=== PATIENT | female | born 1950 | race Caucasian/White ===

== ENCOUNTER 2016-05-20 14:50 | Emergency (ER) | payer OTHER ==
[2016-05-20 16:05] VITALS: BP 151/81
[2016-05-20] MEDS ORDERED: Gelfoam 12-7 ADSORBABL SPONGE* 1 EA SPONGE ONE (17:06)
--- NOTE | 2016-05-20 17:20 | UC ---
Skin Complaint HPI - History of Current Complaint Chief Complaint: UCLaceration Time Seen by Provider: 05/20/16 17:02 Stated Complaint: FINGER LAC Hx Obtained From: Patient Onset/Duration: Sudden Onset - cut tip of L index finger with kitchen knife Skin Exposure Onset/Duration: Minutes Ago - 60min Onset Severity: Moderate Current Severity: Moderate - diff to stop bleeding Location: Hand (Left) Character: Painful Aggravating: Touch Alleviating: Nothing Associated Signs & Symptoms: Positive: Negative - Allergy/Home Medications Allergies/Adverse Reactions: Allergies Allergy/AdvReac Type Severity Reaction Status Date / Time Amoxicillin Allergy Hives Verified 01/14/14 08:27 Propoxyphene [From Darvon] Allergy Vomiting Verified 01/14/14 08:27 Review of Systems Constitutional: Negative Respiratory: Negative Cardiovascular: Negative Musculoskeletal: Negative Neurological: Negative Psychological: Negative All Other Systems Reviewed And Are Negative: Yes PMH/Surg Hx/FS Hx/Imm Hx Previously Healthy: Yes Endocrine History Of: Denies: Diabetes, Thyroid Disease Cardiovascular History Of: Denies: Cardiac Disorders, Hypertension, Pacemaker/ICD Respiratory History Of: Denies: COPD, Asthma GI/ History Of: Denies: Ulcer - Surgical History Surgical History: Yes Surgery Procedure, Year, and Place: tonsillectomy - Family History Known Family History: Positive: None - Social History Occupation: Unemployed Lives: With Family Alcohol Use: Daily Alcohol Amount: drink a day Substance Use Type: None Smoking Status (MU): Never Smoked Tobacco - Immunization History Most Recent Tetanus Shot: 2 years ago Physical Exam Triage Information Reviewed: Yes Appearance: Well-Appearing, No Pain Distress, Well-Nourished Vital Signs: Initial Vital Signs Temp 97.9 F 05/20/16 16:00 Pulse 75 05/20/16 16:00 Resp 18 05/20/16 16:00 BP 151/81 05/20/16 16:00 Pulse Ox 99 05/20/16 16:00 Respiratory Exam: Normal Cardiovascular Exam: Normal Neurological Exam: Normal Psychological Exam: Normal Skin: Positive: Other - small bleeding avulsion to distal L index finger Laceration Repair - Laceration Repair 1 : No Repair Necessary Laceration Size After Repair: Length (cm) - .75, Width (mm) - 5mm, Depth (mm) - 3mm Modified For Repair: No Cleansing Completed Via Routine Prep: Yes Course/Dx - Course Course Of Treatment: gelfoam dressing with tube gauze applied for hemostasis - Differential Diagnoses - Skin Complaint Differential Diagnoses: Other - abrasion, laceration, avulsion - Diagnoses Provider Diagnoses: avulsion injury L index Discharge - Discharge Plan Condition: Good Disposition: HOME Patient Education Materials: Skin Avulsion (ED) Referrals: Maciel Guerrero MD [Primary Care Provider] - 3 Days (if no better) Additional Instructions: elevate Left hand and keep it clean and dry keep current dressing on for 48h, then gently remove tube gauze and keep gelfoam intact apply bandaid until gelfoam wears off return here if problems worsen at any time
== END 2016-05-20 17:31 | disposition home or self-care (01) ==
LOC: UCEAST 14:50
DX: S61.211A Laceration without foreign body of left index finger without damage to nail, initial encounter (principal); W26.0XXA Contact with knife, initial encounter; Y92.9 Unspecified place or not applicable; Z88.0 Allergy status to penicillin; Z88.5 Allergy status to narcotic agent
CPT/HCPCS: 12031; 99212; A9270-GY; G0463

== ENCOUNTER 2018-08-28 08:17 | Inpatient (IN) | payer OTHER, MEDICARE ==
[~2018-08-28 08:17] MED LIST: Buffered Lidocaine 1% SYRIN* 1 ML/SYRINGE INTRADERM ONE; ERTApenem(*) 1 GM in NS 0.9% 50 ML* 50 ML IVPB SCH; Famotidine IV* 10 MG/ML 2 ML (20 mg) IV ONE; Famotidine IV* 10 MG/ML 2 ML (20 mg) ONE; Heparin VIAL(*) 5000 UNITS/ML VIAL (FIVE THOUSAND) ONE; Lactated Ringers 1000 ML Bag* 1,000 ML IV SCH
--- OUTSIDE RECORDS SUMMARY | 2018-08-28 08:21 | XMS REPORT | Continuity of Care Document ---
:1950 External Reference #:[id number] Author Name Soumya Flores Care Team Providers Name Role Phone Margarita Pereira M.D. Primary Care Physician Unavailable Payers Date Identification Numbers Payment Provider Subscriber Policy Number: [id number] [employer] Dianelys Breen Group Number: [id number] [address] PayID: [id number] [place] [address] Problems Active Problems Provider Date Nondisplaced fracture of glenoid cavity of Michele Kim M.D. Onset: 2014 scapula, right shoulder, subsequent encounter for fracture with routine healing Closed fracture of glenoid cavity AND/OR neck of Michele Kim M.D. Onset: scapula Family History Date Family Member(s) Observation Comments General Heart Disease General cancer Father Skin Cancer Father due to Cancer () Mother due to Natural Causes () Siblings 1 Social History Type Date Description Comments Sex Unknown Marital Status Single Lives With Alone Occupation works at [employer] Tobacco Use Start: Unknown Never Smoked Cigarettes Smoking Status Reviewed: 08/13/18 Never Smoked Cigarettes ETOH Use Currently consumes 5-6 drinks/week alcohol Tobacco Use Start: Unknown Patient has never smoked Recreational Drug Use Never Used Drugs Exercise Type/Frequency Exercises regularly Allergies, Adverse Reactions, Alerts Active Allergies Reaction Severity Comments Date Darvon 11/16/2014 Amoxicillin rash 11/16/2014 Latex rash/itch 11/16/2014 Medications Active Medications SIG Qnty Indications Ordering Provider Date Multivitamin Adult 1 by mouth every Unknown Tablets day Vitamin C 1 by mouth every Unknown 500mg Capsules day as needed Potassium & Magnesium 3 times per week Unknown Aspartat 250-250mg Capsules History Medications No Active Medications Unknown 01/28/2015 - 05/24/2018 Hydrocodone Unknown - 01/24/2015 Potassium Chloride Fadumo ER 1 by mouth every day Unknown - 03/2018 10Meq Tablets ER Calcium 1500 mg by mouth Unknown - 07/24/2018 500mg Chewtabs daily Vital Signs Date Vital Result Comment 08/13/2018 10:28am Height 65.75 inches 5'5.75" Weight 140.00 lb Heart Rate 66 /min BP Systolic Sitting 140 mmHg BP Diastolic Sitting 88 mmHg Respiratory Rate 18 /min Body Temperature 97.8 F BMI (Body Mass Index) 22.8 kg/m2 07/24/2018 9:39am Height 63.5 inches 5'3.50" Weight 141.00 lb Heart Rate 70 /min BP Systolic Sitting 143 mmHg BP Diastolic Sitting 89 mmHg O2 % BldC Oximetry 98 % BMI (Body Mass Index) 24.6 kg/m2 05/24/2018 3:22pm Height 63.5 inches 5'3.50" Weight 141.25 lb Heart Rate 68 /min BP Systolic 164 mmHg BP Diastolic 92 mmHg Body Temperature 98.4 F O2 % BldC Oximetry 97 % BMI (Body Mass Index) 24.6 kg/m2 01/28/2015 9:15am Height 66 inches 5'6" Weight 132.00 lb Pain Level 3 BMI (Body Mass Index) 21.3 kg/m2 12/17/2014 8:37am Height 66 inches 5'6" Weight 132.00 lb Pain Level 5 BMI (Body Mass Index) 21.3 kg/m2 11/16/2014 9:57am Height 66 inches 5'6" Weight 132.00 lb Heart Rate 60 /min BP Systolic 161 mmHg BP Diastolic 92 mmHg BMI (Body Mass Index) 21.3 kg/m2 Results Test Date Facility Test Result H/L Range Note CBC Auto Diff 08/08/2018 [facility] White Blood 5.4 10^3/uL N 3.5-10.[address] [place] [address] [phone] Red Blood Count 4.58 10^6/uL N 3.70-4.87 Hemoglobin 13.4 g/dL N 12.0-16.0 Hematocrit 40 % N 35-47 Mean Corpuscular Volume 88 fL N 80-97 Mean Corpuscular Hemoglobin 29 pg N 27-31 Mean Corpuscular HGB Conc 33 g/dL N 31-36 Red Cell Distribution Width 12 % N 10.5-15 Platelet Count 218 10^3/uL N 150-450 Mean Platelet Volume 7.6 fL N 7.4-10.4 Abs Neutrophils 3.5 10^3/uL N 1.5-7.7 Abs Lymphocytes 1.6 10^3/uL N 1.0-4.8 Abs Monocytes 0.2 10^3/uL N 0-0.8 Abs Eosinophils 0.0 10^3/uL N 0-0.6 Abs Basophils 0.0 10^3/uL N 0-0.2 Abs Nucleated RBC 0.0 10^3/uL Granulocyte % 64.8 % Lymphocyte % 29.9 % Monocyte % 4.2 % Eosinophil % 0.5 % Basophil % 0.6 % Nucleated Red Blood Cells % 0.3 Comp Metabolic Panel 08/08/2018 [facility] Sodium 139 mmol/L N 135-[address] [place] [address] [phone] Potassium 3.7 mmol/L N 3.5-5.0 Chloride 106 mmol/L N 101-111 Co2 Carbon Dioxide 26 mmol/L N 22-32 Anion Gap 7 mmol/L N 2-11 Glucose 127 mg/dL High 70-100 Blood Urea Nitrogen 15 mg/dL N 6-24 Creatinine 0.83 mg/dL N 0.51-0.95 BUN/Creatinine Ratio 18.1 N 8-20 Calcium 9.2 mg/dL N 8.6-10.3 Total Protein 6.4 g/dL N 6.4-8.9 Albumin 4.2 g/dL N 3.2-5.2 Globulin 2.2 g/dL N 2-4 Albumin/Globulin Ratio 1.9 N 1-3 Total Bilirubin 0.50 mg/dL N 0.2-1.0 Alkaline Phosphatase 59 U/L N 34-104 Alt 15 U/L N 7-52 Ast 19 U/L N 13-39 Egfr Non- 68.6 >60 Egfr 83.0 >60 1 Iron & Iron Binding 08/08/2018 [facility] Iron 70 g/dL N 50- [address] [place] [address] [phone] Unsaturated Iron Binding < 317 g/dL Total Iron Binding Capacity 332 g/dL N 250-450 Transferrin 237 mg/dL N 203-362 % Iron Saturation 21 % N 15-55 Laboratory test 08/08/2018 [facility] Carcinoembryonic 1.4 ng/ mL N 0.1-5.0 [address] [place] [address] [phone] Ferritin 64.0 ng/mL N 11-307 Laboratory test 08/02/2018 [facility] Surgical SEE RESULT 3 , [address] [place] [address] [phone] CBC Auto Diff 07/24/2018 [facility] White Blood 4.2 10^3/uL N 3.5-[address] Count 0.8 [place] [address] [phone] Red Blood Count 4.64 10^6/uL N 3.70-4.87 Hemoglobin 13.5 g/dL N 12.0-16.0 Hematocrit 41 % N 35-47 Mean Corpuscular Volume 89 fL N 80-97 Mean Corpuscular Hemoglobin 29 pg N 27-31 Mean Corpuscular HGB Conc 33 g/dL N 31-36 Red Cell Distribution Width 13 % N 10.5-15 Platelet Count 205 10^3/uL N 150-450 Mean Platelet Volume 7.9 fL N 7.4-10.4 Abs Neutrophils 2.8 10^3/uL N 1.5-7.7 Abs Lymphocytes 1.1 10^3/uL N 1.0-4.8 Abs Monocytes 0.2 10^3/uL N 0-0.8 Abs Eosinophils 0 10^3/uL N 0-0.6 Abs Basophils 0 10^3/uL N 0-0.2 Abs Nucleated RBC 0 10^3/uL Granulocyte % 66.6 % Lymphocyte % 26.5 % Monocyte % 5.8 % Eosinophil % 0.5 % Basophil % 0.6 % Nucleated Red Blood Cells % 0.1 1 Because ethnic data is not always readily available, this report includes an eGFR for both -Americans and non- Americans. The National Kidney Disease Education Program (NKDEP) does not endorse the use of the MDRD equation for patients that are not between the ages of 18 and 70, are , have extremes of body size, muscle mass, or nutritional status, or are non- or non-. According to the National Kidney Foundation, irrespective of diagnosis, the stage of the disease is based on the level of kidney function: Stage Description GFR(mL/min/1.73 m(2)) 1 Kidney damage with normal or decreased GFR 90 2 Kidney damage with mild decrease in GFR 60-89 3 Moderate decrease in GFR 30-59 4 Severe decrease in GFR 15-29 5 Kidney failure <15 (or dialysis) 2 Nonsmokers: < 2.9 ng/mL Some smokers may have elevated CEA, usually <5.0 ng/mL. Serum markers are not specific for malignancy, and values may vary by method. The testing method is an immunoenzymatic assay tractor trailer mechanic by [employer] performed on [employer] DXI 600. Do not interpret serum CEA levels as absolute evidence of the presence or the absence of malignant disease. Use serum CEA in conjunction with information from the clinical evaluation of the patient and other diagnostic procedures. 3 [id number] 4 SEE RESULT BELOW Name: SWAPNADIANELYS : [address]: Jackson Good DO Acct: [id number] Unit: [id number] AGE: 68 Location: [facility] Re08/02/18 SEX: F Status: DEP REF SPEC: [id number] RAFAEL: 08/02/18-[address]: Jackson Good DO REQ: [id number] RECD: 08/02/18-5182 STATUS: SAMIA JUNIOR DR: Margarita Pereira MD _ ORDERED: LEVEL 4/2, IMMUNO-FIRST, IMMUNO-ADDL/4 COMMENTS: [id number] ADDENDUM Addendum: Following immunochemical stains were performed with appropriate controls on part 2. PMS 2 intact MSH 6 intact MSH 2 intact MLH-1 intact BRAF negative No evidence of mismatch repair proteins defect is identified. Addendum Signed (signature on file) Arvind Wesley MD 1514 FINAL DIAGNOSIS 1. Colon, transverse, biopsy: -- Scant bacterial debris and mucin only. -- No patient tissue identified. 2. Colon, sigmoid, biopsy: -- Invasive, moderately differentiated colonic adenocarcinoma arising in association with tubulovillous adenoma. -- Extensive invasion cannot be assessed on this limited biopsy. CONTINUED ON NEXT PAGE DEPARTMENT OF PATHOLOGY, [address] [place] [address] Arvind Wesley M.D. Director DAVID # [id number] RUN DATE: 08/06/18 [facility] LAB LIVE PAGE 2 Patient: DIANELYS BREEN [id number] (Continued) FINAL DIAGNOSIS (Continued) Comment: Additional studies including mismatch repair protein and BRAF immunochemical stains are pending on part 2 and will be reported in an addendum. Dr. Baker has reviewed this case and concurs. CLINICAL HISTORY Rectal bleeding POST-OPERATIVE DIAGNOSIS Colonoscopy: to terminal ileum; good prep; mass at 12; 3-4 cm; spotting proximal and distal; third over two folds; friable; orise; biopsy; cold snare transverse polyp (1) GROSS DESCRIPTION 1. The specimen is received in formalin labeled, Transverse Polyp, and consists of a 0.2 x 0.1 by less than 0.1 cm aggregate of tong irregular possible soft tissue fragments. Entirely submitted, one cassette. 2. The specimen is received in formalin labeled, Sigmoid Mass at 17 cm Biopsy, and consists of a 0.9 x 0.8 x 0.2 cm aggregate of erythematous tong-pink irregular soft tissue fragments which is submitted entirely in one cassette. Signed by and Reported on: Arvind Wesley MD 1426 END OF REPORT DEPARTMENT OF PATHOLOGY, [address] [place] [address] Arvind Wesley M.D. Director [facility] # [id number] Procedures Date Code Description Status 08/02/2018 01997312 Colonoscopy Completed 06/19/2018 05318 Destruction Of Benign Lesions Any Method 1-14 lesions Completed Encounters Type Date Location Provider Dx Diagnosis Office Visit 07/24/2018 [facility] Internal Margarita Pereira MD K62.5 Hemorrhage of anus 9:40a Medicine and rectum R03.0 Elevated blood-pressure reading, w/o diagnosis of htn Office Visit 06/19/2018 10:20a [facility] Dermatology Dorys Luo, L82.1 Other seborrheic MD keratosis L81.4 Other melanin hyperpigmentation D18.01 Hemangioma of skin and subcutaneous tissue L72.0 Epidermal cyst L85.3 Xerosis cutis Z80.8 Family history of malignant neoplasm of organs or systems L82.0 Inflamed seborrheic keratosis L53.8 Other specified erythematous conditions Office Visit 05/24/2018 3:20p [facility] Internal Margarita Pereira MD R25.2 Cramp and Medicine - spasm [place] R03.0 Elevated blood-pressure reading, w/o diagnosis of htn D48.5 Neoplasm of uncertain behavior of skin H91.93 Unspecified hearing loss, bilateral L98.9 Disorder of the skin and subcutaneous tissue, unspecified Office Visit 01/28/2015 9:15a Orthopedic Michele Kim, S42.144D Nondisp fx of Services Of M.DSkylar glenoid cav of C.M.Amadison mack, 7thD Office Visit 12/17/2014 8:30a Janet Kim S42.144D Nondisp fx of Services Of M.D. glenoid cav of C.M.Amadison mack, 7thD Office Visit 11/16/2014 9:30a Orthopedic Michele Kim, 811.03 FX Scapula Services Of M.DSkylar Glenoid Cavity C.M.A. & Neck Closed Plan of Treatment Future Appointment(s):08/28/2018 10:00 am - NIKKI Syed at [facility]08/28/2018 10:00 am - Nithin Smart MD, FACS at [facility]11/26/2018 10:00 am - Margarita Pereira MD at [facility] Internal [place]04/21/2019 - Nithin Smart MD, FACSC18.7 Malignant neoplasm of sigmoid colonComments:Patient will require a bowel prep including oral antibiotics. I discussed this with her and she understands the plan. Expectations of a 4-7 day admission postprocedure.Follow up:operating room
--- OUTSIDE RECORDS SUMMARY | 2018-08-28 08:21 | XMS REPORT | Continuity of Care Document ---
:1950 External Reference #:[id number] Author Name Mellisa Fitch Care Team Providers Name Role Phone Margarita Pereira M.D. Primary Care Physician Unavailable Payers Date Identification Numbers Payment Provider Subscriber Policy Number: [id number] [employer] Rita Breen Group Number: [id number] [address] PayID: [id number] [place] [address] Problems Active Problems Provider Date Nondisplaced fracture [...] Single Lives With Alone Occupation works at [employer] Tobacco Use Start: Unknown Never Smoked Cigarettes [...] Medications SIG Qnty Indications Ordering Provider Date Flagyl 1 tab by mouth at 3tabs Maricruz Breen, 08/20/2018 500mg Tablets 1:00 at night & MD 7:00 at night the day before surgery and at 7:00 in the morning the day of surgery Neomycin Sulfate 2 tabs by mouth 6tabs Maricruz Breen, 08/20/2018 500mg at 1:00 at night Tablets & 7:00 at night the day before surgery, and at 7:00 in the morning the day of surgery Peg 3350/Electrolytes as directed the 4000ml Maricruz Breen, 08/20/2018 day before 240gm Solution Rec surgery Multivitamin Adult 1 by mouth every Unknown day Tablets Vitamin C 1 by mouth every Unknown 500mg day as needed Capsules Potassium & Magnesium 3 times per week [...] H/L Range Note CBC Auto Diff 08/08/2018 [facility] White Blood 5.4 10^3/uL N 3.5-10.[address] [place] [address] [phone] Red Blood Count 4.58 10^6/uL N 3.70-4.87 [...] Cells % 0.3 Comp Metabolic Panel 08/08/2018 [facility] Sodium 139 mmol/L N 135-[address] [place] [address] [phone] Potassium 3.7 mmol/L N 3.5-5.0 Chloride 106 [...] >60 1 Iron & Iron Binding 08/08/2018 [facility] Iron 70 g/dL N 50- [address] [place] [address] [phone] Unsaturated Iron Binding < 317 g/dL Total Iron Binding Capacity 332 g/dL N 250-450 Transferrin 237 mg/dL N 203-362 % Iron Saturation 21 % N 15-55 Laboratory test 08/08/2018 [facility] Carcinoembryonic 1.4 ng/ mL N 0.1-5.0 [address] [place] [address] [phone] Ferritin 64.0 ng/mL N 11-307 Laboratory test 08/02/2018 [facility] Surgical SEE RESULT 3 , [address] [place] [address] [phone] CBC Auto Diff 07/24/2018 [facility] White Blood 4.2 10^3/uL N 3.5-[address] Count 0[address]8 [place] [address] [phone] Red Blood Count 4.64 10^6/uL N 3.70-4.87 [...] The testing method is an immunoenzymatic assay accessories repairer by [employer] performed on [employer] DXI 600. Do not interpret serum CEA levels as absolute evidence of the presence or the absence of malignant disease. Use serum CEA in conjunction with information from the clinical evaluation of the patient and other diagnostic procedures. 3 [id number] 4 SEE RESULT BELOW Name: RITA BREEN : [address]: Jackson Good DO Acct: [id number] Unit: [id number] AGE: 68 Location: [facility] Re08/02/18 SEX: F Status: DEP REF SPEC: [id number] RAFAEL: 08/02/18-1027 [facility] DR: Jackosn Good DO REQ: [id number] RECD: 08/02/18914 STATUS: SAMAI JUNIOR DR: Margarita Pereira MD _ ORDERED: LEVEL 4/2, IMMUNO-FIRST, IMMUNO-ADDL/4 COMMENTS: [id number] ADDENDUM Addendum: Following immunochemical stains were performed [...] CONTINUED ON NEXT PAGE DEPARTMENT OF PATHOLOGY, [address] [place] [address] Arvind Wesley M.D. Director DAVID # [id number] RUN DATE: 08/06/18 [facility] LAB LIVE PAGE 2 Patient: RITA BREEN [id number] (Continued) FINAL DIAGNOSIS (Continued) Comment: Additional studies [...] 1426 END OF REPORT DEPARTMENT OF PATHOLOGY, [address] [place] [address] Arvind Wesley M.D. Director [facility] # [id number] Procedures Date Code Description Status 08/02/2018 [id number] Colonoscopy Completed 06/19/2018 23923 Destruction Of Benign Lesions Any Method 1-14 lesions Completed Encounters Type Date Location Provider Dx Diagnosis Office Visit 08/13/2018 [facility] Nithin Smart, C18.7 Malignant neoplasm 10:30a Of Debbie GUPTA, FACS of sigmoid colon Office Visit 07/24/2018 [facility] Internal Margarita Pereira MD K62.5 Hemorrhage of anus 9:40a Medicine and rectum R03.0 Elevated blood-pressure reading, w/o diagnosis of htn Office Visit 06/19/2018 10:20a [facility] Dermatology Dorys Luo, L82.1 Other seborrheic MD keratosis L81.4 Other melanin hyperpigmentation D18.01 Hemangioma of skin and subcutaneous tissue L72.0 Epidermal cyst L85.3 Xerosis cutis Z80.8 Family history of malignant neoplasm of organs or systems L82.0 Inflamed seborrheic keratosis L53.8 Other specified erythematous conditions Office Visit 05/24/2018 3:20p [facility] Internal Margarita Pereira MD R25.2 Cramp and Medicine - spasm [place] R03.0 Elevated blood-pressure reading, w/o diagnosis of htn D48.5 Neoplasm of uncertain behavior of skin H91.93 Unspecified hearing loss, bilateral L98.9 Disorder of the skin and subcutaneous tissue, unspecified Office Visit 01/28/2015 9:15a Orthopedic Michele Kim, S42.144D Nondisp fx of Services Of M.D. glenoid cav of C.M.A. madison paz, 7thD Office Visit 12/17/2014 8:30a Orthopedic Michele Julio, S42.144D Nondisp fx of Services Of M.D. glenoid cav of C.M.A. madison paz, 7thD Office Visit 11/16/2014 9:30a Orthopedic Michele Kim, 811.03 FX Scapula Services Of M.D. Glenoid Cavity C.M.A. & Neck Closed Plan of Treatment Future Appointment(s):08/28/2018 10:00 am - NIKKI Syed at [facility]08/28/2018 10:00 am - Nithin Smart MD, FACS at [facility]11/26/2018 10:00 am - Margarita Pereira MD at [facility] Internal Ipxkkvba88/21/2019 - Nithin Smart MD, FACSC18.7 Malignant neoplasm of sigmoid colonComments:Patient will require a bowel prep including oral antibiotics. I discussed this with her and she understands the plan. Expectations of a 4-7 day admission postprocedure.Referral:Nithin Smart MD, Surgery,GeneralFollow up:operating room
--- OUTSIDE RECORDS SUMMARY | 2018-08-28 08:21 | XMS REPORT | Continuity of Care Document ---
:1950 External Reference #:[id number] Author Name Tawnya Baxter PA-C Address [address] [place] [address] [place] [address] Care Team Providers Name Role Phone Margarita Pereira M.D. Care Team Information Core Inserter Unavailable Margarita Pereira M.D. Primary Care Physician Unavailable Payers Date Identification Numbers Payment Provider Subscriber Policy Number: [id number] Liang Breen PayID: [id number] [address] [place] [address] Advance Directives Description No Information Available Problems Active Problems Provider Date Hemorrhage of rectum and anus Tawnya Baxter PA-C Onset: 07/29/2018 Family History Date Family Member(s) Observation Comments Aunt Colon Cancer Social History Type Date Description Comments Sex Unknown Tobacco Use Start: Unknown Patient has never smoked Smoking Status Reviewed: 07/29/18 Patient has never smoked Allergies, Adverse Reactions, Alerts Active Allergies Reaction Severity Comments Date Amoxicillin 07/24/2018 Propoxyphene 07/24/2018 Latex 07/24/2018 Medications Active Medications SIG Qnty Indications Ordering Provider Date Colyte-Flavor Packs As directed 4000ml K62.5 Tawnya Potter 07/29/2018 240gm VALENTIN Baxter Solution Rec Teuerqi-Kfcefkcmc-Ysrk Unknown Potassium Unknown History Medications Vitamin C 1 by mouth every day Unknown - 07/28/2018 500mg Tablets Immunizations Description No Information Available Vital Signs Date Vital Result Comment 07/29/2018 8:55am Height 64.5 inches 5'4.50" Weight 138.00 lb BP Systolic 134 mmHg BP Diastolic 92 mmHg Heart Rate 73 /min BMI (Body Mass Index) 23.3 kg/m2 Results Test Date Facility Test Result H/L Range Note CBC W/Auto 07/24/2018 [facility] White Blood <pending> Differential(!) Count Ser Auto CNT RBC Red Blood Count <pending> Hemoglobin Blood <pending> Hematocrit <pending> MCV (Corpuscular Volume) <pending> MCH (Corpuscular Hemoglobin) <pending> MCHC (Corpuscular Hemog Conc) <pending> RDW <pending> Platelet Count Blood Auto CNT <pending> MPV <pending> Lymph% <pending> [place]% <pending> Neutrophil % <pending> Absolute Lymphocytes <pending> Absolute Monocytes <pending> Absolute Neutrophils <pending> Procedures Description No Information Available Encounters Type Date Location Provider Dx Diagnosis Office Visit 05/09/2011 [facility] Pizarro 789.00 Pain Abdominal 2:15p [facility] MD Unspec Site Plan of Treatment Future Appointment(s):08/02/2018 9:30 am - Jackson Good DO at [facility]07/29/2018 - NIKKI Briones-CK62.5 Hemorrhage of anus and rectumNew Medication:Colyte-Flavor Packs 240 gm - As directedComments:RISKS AND BENEFITS OF THE PROCEDURE WERE DISCUSSED WITH PATIENT.
[2018-08-28] MEDS ORDERED: Propofol* 10 MG/ML 20 ML BTL ONE (08:45)
[2018-08-28] MEDS ORDERED: Midazolam* 1 MG/ML 5 ML VIAL (5 MG) ONE (08:45)
[2018-08-28] MEDS ORDERED: fentaNYL* 50 MCG/ML 2 ML VIAL (100 MCG VIAL) ONE ×3 (08:45→12:56)
[2018-08-28] MEDS ORDERED: Phenylephrine 10 MG/ML VIAL* 1 ML VIAL ONE (08:45)
[2018-08-28] MEDS ORDERED: Lidocaine 2% PF * 5 ML VIAL ONE (08:45)
[2018-08-28] MEDS ORDERED: Dexamethasone IV* 4 MG/ML 1 ML (4 MG) ONE (08:45)
[2018-08-28] MEDS ORDERED: Ondansetron INJ* 2 MG/ML VIAL ONE (08:45)
[2018-08-28] MEDS ORDERED: Rocuronium* 10 MG/ML VIAL ONE (08:45)
[2018-08-28] MEDS ORDERED: KETAMINE HCL* 50 MG/ML 10 ML VIAL ONE (08:46)
[2018-08-28] MEDS ORDERED: Scopolamine 1.5 mg* PATCH ONE (10:08)
[2018-08-28] MEDS ORDERED: Bupivacaine 0.25% W/EPI* 10 ML SDV ONE (10:14)
[2018-08-28] MEDS ORDERED: DiMENhydriNATE IV* 50 MG/ML VIAL ONE (12:14)
[2018-08-28] MEDS ORDERED: Naloxone* 0.4 MG/ML 1 ML VIAL IV PRN (12:19)
[2018-08-28] MEDS ORDERED: Ondansetron INJ* 2 MG/ML VIAL IV PRN (12:19)
[2018-08-28] MEDS ORDERED: PROCHLORPERAZINE INJ 5 MG/ML 2 ML VIAL IV PRN (12:19)
[2018-08-28] MEDS ORDERED: Bupivacaine 0.25% EPI 200,000* 30 ML SDV ONE (13:26)
[2018-08-28] MEDS ORDERED: HYDROmorphone INJ1* 1 MG/ML SYRINGE ONE (13:54)
[2018-08-28] MEDS ORDERED: Ketorolac INJ* 30 MG/ML 1 ML VIAL ONE (13:54)
--- NOTE | 2018-08-28 14:55 | OP ---
Operative Report - Blank - Operative Report Date of Operation: 08/28/18 Note: Brief Operative Note Preop Dx: colon cancer Postop Dx: same Procedure: Laparoscopic-assisted sigmoid colectomy Anesthesia: GET Surgeon: Berry Laboratory Clerk: NIKKI Bryson Fluids: 2550 ml RL EBL: 100 ml Specimen: sigmoid colon Drains: none Findings: dictated
[2018-08-28] MEDS ORDERED: Lactated Ringers 1000 ML Bag* 1,000 ML IV ONE (15:01)
[2018-08-28] MEDS ORDERED: Acetaminophen TAB* 325 MG PO PRN (15:03)
[2018-08-28] MEDS ORDERED: HYDROcodone/ACETAMIN 5-325 MG* 1 TAB PO PRN ×2 (15:04)
[2018-08-28] MEDS ORDERED: HYDROmorphone INJ1* 1 MG/ML SYRINGE IV SLOW PU PRN ×2 (15:05)
[2018-08-28] MEDS ORDERED: fentaNYL* 50 MCG/ML 5 ML VIAL (250 MCG VIAL) ONE (15:25)
[2018-08-28] MEDS: fentaNYL* 50 MCG/ML 2 ML VIAL (100 MCG VIAL) IV PRN ×5 (15:26→16:56)
[2018-08-28] MEDS ORDERED: Acetaminophen IV 1GM/100ML * 100 ML ONE (16:48)
[2018-08-28] MEDS ORDERED: Enalaprilat IV* 1.25 MG/ML 2 ML VIAL (2.5 MG) ONE (16:48)
[2018-08-28] MEDS ORDERED: Naloxone* 0.4 MG/ML 1 ML VIAL IV PUSH PRN (16:49)
[2018-08-28] MEDS ORDERED: HYDROmorphone PCA* 20 MG/20 ML PCA.SYRING PCA SCH (17:00)
[2018-08-28 17:33] LABS: Hematocrit 38 % (35-47); Hemoglobin 12.8 g/dL (12.0-16.0); Mean Corpuscular HGB Conc 34 g/dL (31-36); Mean Corpuscular Hemoglobin 30 pg (27-31); Mean Corpuscular Volume 89 fL (80-97); Mean Platelet Volume 7.1 fL (7.4-10.4); Platelet Count 162 10^3/uL (150-450); Red Blood Count 4.28 10^6 /uL (3.70-4.87); Red Cell Distribution Width 13 % (10.5-15); White Blood Count 8.1 10^3/uL (3.5-10.8)
[2018-08-28] MEDS ORDERED: HYDROmorphone PCA* 20 MG/20 ML PCA.SYRING ONE (17:44)
[2018-08-28 17:58] LABS: INR 1.05 (0.82-1.09)
[2018-08-28] MEDS: Lactated Ringers 1000 ML Bag* 1,000 ML IV SCH (22:00)
--- NOTE | 2018-08-29 03:19 | OP ---
CC: Primary Care Doctor; Dr. Jackson Good * DATE OF OPERATION: 08/28/18 - ROOM #335 DATE OF : 52 SURGEON: Nithin Smart MD UPHOLSTERY HANDLER: NIKKI Willingham ANESTHESIOLOGIST: Dr. Aguilera. ANESTHESIA: General anesthesia. PRE-OP DIAGNOSIS: Colon cancer. POST-OP DIAGNOSIS: Colon cancer. OPERATIVE PROCEDURE: Laparoscopic-assisted sigmoid colectomy. FLUIDS: 100 cc of crystalloid fluid given. IV FLUIDS: 2500 cc of lactated Ringer's. URINE OUTPUT: 400 cc of urine output. SPECIMEN: Sigmoid colon along with doughnuts from end-to-end anastomosis. DESCRIPTION OF PROCEDURE: The patient was identified in the preoperative area, consent signed. She was marked, taken to the operating room, placed on the operating table in supine position. Preoperative antibiotics given. Sequential devices were placed on bilateral lower extremities. General anesthesia was induced. A Franks catheter inserted. On exam of the rectum, there was some loose stool still exiting, mostly thin. We then inserted a large Franks catheter and inflated the balloon and did a prep from below of Betadine irrigation. I could not palpate any lesion on examination. Then, the patient' s abdomen was prepped and draped in a standard surgical fashion and time-out performed. A supraumbilical incision was made. This was deepened down through the anterior fascia which was elevated and incised and posterior fascia was similarly excised and entry into the abdominal cavity was made under direct vision and a Teodora cannula was inserted. This allowed the abdomen to insufflate to a pressure of 15 mmHg. Laparoscope was inserted through this and there was no evidence of injury from trocar insertion. Review of the abdomen showed normal-appearing small bowel. Liver appeared within normal limits. Stomach was mildly dilated without a G-tube. There was a blue dye in the low pelvis spattering around the peritoneum. Additional trocars were then placed in the following position: A 12 mm in the right lower quadrant, 12 mm in the suprapubic area, and a 5 mm at the left lateral side. The table was repositioned in Trendelenburg. The sigmoid colon was identified after moving small bowel superiorly. We did identify a blue dye extending right down to the rectus sigmoid junction. With retraction anteriorly of the sigmoid colon, peritoneum of the medial aspect of the colon was taken with cautery and extending this down along the peritoneal attachments of the sacral promontory. We extended this dissection along the proximal descending mesocolon as well to identify the MARIBELL. Once this was performed, we then turned attention laterally. There were some attachments to the sigmoid colon laterally; these were taken down with blunt and sharp dissection and then the white line of Toldt was incised. We continued this dissection superiorly right up to the splenic flexure and took the colon down from all its attachments at the splenic flexure with painstaking dissection until the descending colon to be brought down into the pelvis. It should be noted that the ureters were identified early on in this procedure and protected throughout. Next, the peritoneum overlying the sigmoid colon extending towards the rectosigmoid junction was taken with cautery and then the peritoneum overlying the rectum was taken similarly with electrocautery with traction superiorly. Next, the distal sigmoid colon was isolated with blunt dissection just beyond the blue dye and a 60-mm purple STEPHANIE stapling device was fired across what appeared to be proximal rectum at this site. The mesorectum extending towards the sigmoid mesentery was taken with LigaSure device; we did get some bleeding at these areas, which were controlled with electrocautery, made sure this was lifted off the sacral promontory and extending it superiorly. When I isolated the IMV, an MARIBELL was taken with a 45-mm tong STEPHANIE stapling device. There was some oozing at the staple line, the vascular transection and hemoclips were utilized for hemostasis. At this point, the colon was fully mobile and could be brought down into the pelvis and we had transected distal to the blue dye and kept a very good amount of mesocolon and portion of mesorectum in our specimen. Next, the suprapubic incision was extended medially in a transverse fashion and this was deepened down to the anterior fascia, flap was made superiorly and the fascia was cut in a up-and-down fashion, muscle split posterior, and the peritoneum entered as well. We then brought our specimen through this and reviewed the area. There we could palpate the mass at this time and felt we had good margins. The point on the descending colon was chosen and the mesentery was taken from there to the previously dissected mesentery with the LigaSure device. Next, the wound protected. We placed a pursestring suture around the descending colon through healthy tissue without any evidence of diverticula. We then transected the specimen, passed it off. The 3-0 Biosyn suture was then utilized for that pursestring and we used sizers and ended up utilizing a 28, 4.8-mm EA stapling device. Anvil was placed in with ease and then sutured with pursestring suturing taking care to keep any pericolonic fat out of this area. Next, I reviewed the specimen. This was opened up along the teniae and extended it towards the lesion. Lesion was friable, approximately 3 cm lesion on the mesenteric side with what appeared to be a 2- to 3-cm margin, not including the staple line. Gloves were changed. We then reapproximated the peritoneum with 2-0 running Vicryl suture and then the anterior fascia was reapproximated with #1 Vicryl sutures in a [id number] fashion. The wound was then irrigated and the abdomen was allowed to insufflate again. View of the abdomen showed some blood in the pelvis though we did not see any identifiable bleeding and this seemed to have stopped. We did review the MARIBELL stump and placed another hemoclip at this for hemostasis. The descending colon with Anvil was easily brought down into the pelvis. Next, we used the sizers to enter into the rectum and placed this up. We came out with the EA stapler through the anterior aspect of the rectum, staple line and made this to the descending colon and then with proper orientation fired, the stapler. Hemostasis was excellent. The colon was not twisted. We then tested the anastomosis by clamping proximal and inserting air through a Franks catheter while the anastomosis was submerged and showed no air bubbles. Doughnuts were complete from the stapling device. Hemostasis was excellent and we then suctioned over the spleen and over the liver and again over the liver lesion. Next, we removed the right lower quadrant 12-mm trocar and closed the fascial layer with a 0 Polysorb suture using a VAC device. The abdomen was allowed to collapse. Trocars removed under direct vision and the fascia at the umbilical port site was reapproximated with 0 Vicryl suture as well. 4-0 Monocryl sutures were used to close all the incisions followed by sterile dressing. The patient tolerated the procedure well. Lap pad count and instrument count correct at the end of procedure and the patient was transferred to the PACU. [id number]/[facility] #: [id number] [facility]IT[facility]yler
[2018-08-29] MEDS: Lactated Ringers 1000 ML Bag* 1,000 ML IV SCH (04:21)
[2018-08-29 06:42] LABS: ABS Lymphocytes 0.9 10^3/ul (1.0-4.8); ABS Monocytes 0.5 10^3/ul (0-0.8); ABS Neutrophils 4.3 10^3/ul (1.5-7.7); Hematocrit 31 % (35-47); Hemoglobin 10.6 g/dL (12.0-16.0); Lymphocyte % 15.8 %; Mean Corpuscular HGB Conc 35 g/dL (31-36); Mean Corpuscular Hemoglobin 30 pg (27-31); Mean Corpuscular Volume 87 fL (80-97); Mean Platelet Volume 7.2 fL (7.4-10.4); Platelet Count 145 10^3/uL (150-450); Red Blood Count 3.52 10^6 /uL (3.70-4.87); Red Cell Distribution Width 12 % (10.5-15); White Blood Count 5.7 10^3/uL (3.5-10.8)
[2018-08-29 07:02] LABS: BUN/Creatinine Ratio 9.7 (8-20); Calcium 8.1 mg/dL (8.6-10.3); EGFR African American 97.8 (>60); EGFR Non-African American 80.8 (>60); Potassium 4.5 mmol/L (3.5-5.0)
[2018-08-29] MEDS: Ondansetron INJ* 2 MG/ML VIAL IV PRN (09:31)
--- NOTE | 2018-08-29 10:56 | PN ---
Progress Note - Progress Note Date of Service: 08/29/18 SOAP: Subjective: Patient seen and examined. Pain better treated with GRAVE CLEANER, but patient states that she forgets to push the button. No nausea. Bleeding per rectum throughout night. Objective: Temp Pulse Resp BP Pulse Ox 98.6 F 62 18 108/57 99 08/29/18 07:18 08/29/18 07:18 08/29/18 07:18 08/29/18 07:18 08/29/18 07:18 Intake & Output 08/28/18 08/29/18 08/29/18 22:59 06:59 14:59 Intake Total 1668 1063 Output Total 1150 200 Balance 518 863 Alert and oriented 3, no apparent distress mucous membranes dry Abdomen: Soft, nondistended, tender at RIGHT lower quadrant. Dressing intact. Rectal exam reveals some blood, but no active bleeding Extremities within normal limits labs noted Assessment: postoperative day 1 status post laparoscopic sigmoid colectomy. patient had dizziness upon walking, but was able to take a few steps today. Plan: Discontinue Rfanks. Continue strict I's and O's Incentive spirometer. Subcutaneous heparin to start this afternoon. Continue with lactated Ringer's Sips of water okay.
[2018-08-29] MEDS ORDERED: Metoclopramide IV* 5 MG/ML 2 ML VIAL IV PRN (12:04)
[2018-08-29] MEDS ORDERED: Metoclopramide IV* 5 MG/ML 2 ML VIAL ONE (12:25)
[2018-08-29] MEDS ORDERED: Lactated Ringers 1000 ML Bag* 1,000 ML IV SCH (13:00)
[2018-08-29] MEDS: Pantoprazole IV* 40 MG IV SCH (13:36)
[2018-08-29] MEDS ORDERED: Heparin VIAL(*) 5000 UNITS/ML VIAL (FIVE THOUSAND) SUBCUT SCH (14:00)
[2018-08-29 15:14] LABS: Hematocrit 30 % (35-47); Hemoglobin 10.2 g/dL (12.0-16.0)
[2018-08-29] MEDS: Heparin VIAL(*) 5000 UNITS/ML VIAL (FIVE THOUSAND) SUBCUT SCH (22:58)
[2018-08-30] MEDS: Lactated Ringers 1000 ML Bag* 1,000 ML IV SCH (01:02)
[2018-08-30] MEDS: Heparin VIAL(*) 5000 UNITS/ML VIAL (FIVE THOUSAND) SUBCUT SCH ×3 (06:06→21:52)
[2018-08-30 06:59] LABS: ABS Lymphocytes 0.7 10^3/ul (1.0-4.8); ABS Monocytes 0.4 10^3/ul (0-0.8); ABS Neutrophils 4.8 10^3/ul (1.5-7.7); Eosinophil % 0.1 %; Hematocrit 28 % (35-47); Hemoglobin 9.3 g/dL (12.0-16.0); Lymphocyte % 12.1 %; Mean Corpuscular HGB Conc 34 g/dL (31-36); Mean Corpuscular Hemoglobin 30 pg (27-31); Mean Corpuscular Volume 88 fL (80-97); Mean Platelet Volume 7.4 fL (7.4-10.4); Platelet Count 120 10^3/uL (150-450); Red Blood Count 3.13 10^6 /uL (3.70-4.87); Red Cell Distribution Width 12 % (10-15); White Blood Count 5.9 10^3/uL (3.5-10.8)
[2018-08-30 07:15] LABS: BUN/Creatinine Ratio 9.5 (8-20); Calcium 7.9 mg/dL (8.6-10.3); EGFR African American 94.7 (>60); EGFR Non-African American 78.3 (>60); Potassium 3.8 mmol/L (3.5-5.0)
[2018-08-30 07:38] LABS: Magnesium 1.6 mg/dL (1.9-2.7)
[2018-08-30] MEDS ORDERED: Ketorolac INJ* 15 MG/ML 1 ML VIAL IV PUSH PRN (08:58)
[2018-08-30] MEDS ORDERED: Magnesium Sulfate 1 GM IV* 1 GM/100 ML BAG IV ONE (08:59)
[2018-08-30] MEDS ORDERED: Morphine INJ* 2 MG/ML 1 ML SYRINGE (TWO MG - NEW SYRINGE VERSION) IV PRN (09:00)
--- NOTE | 2018-08-30 09:07 | PN ---
Progress Note - Progress Note Date of Service: 08/30/18 SOAP: Subjective: Patient seen and examined. Patient feels a little better today than yesterday. She has been able to get up and walk around. She gets dizzy and tired easily. She's had nausea when she goes to the bathroom. She has voided on her own. She denies any flatus. She continues to have abdominal pain throughout her abdomen is controlled with narcotics. Tarry rectal output. Objective: Temp Pulse Resp BP Pulse Ox 100.9 F 86 18 123/73 91 08/30/18 07:23 08/30/18 07:23 08/30/18 07:23 08/30/18 07:23 08/30/18 07:23 Patient's O2 sat rocky to 88-91 on room air, 100 on 2 L Urine output has been good. Alert and oriented 3 Lungs clear to auscultation bilaterally Abdomen: Soft, nondistended, tender. Dressings removed and Steri-Strips in place. No erythema. Ecchymosis consistent with heparin shots. Labs reviewed and hematocrit of 29. pathology pending Assessment: Postoperative day two from laparoscopic assisted sigmoid colectomy. Pathology pending. Postoperative anemia. Due to blood loss. Plan: Change IV fluids. Continue strict I's and O's. Replete electrolytes. Continue clears only for now. Pain control. Including Toradol. Labs in the morning
[2018-08-30] MEDS: Ondansetron INJ* 2 MG/ML VIAL IV PRN (10:01)
[2018-08-30] MEDS: Pantoprazole IV* 40 MG IV SCH (10:03)
[2018-08-30] MEDS: D5W 1/2 NS KCl 20 Meq 1000 ML* 1,000 ML IV SCH ×2 (10:06→23:16)
[2018-08-30] MEDS: oxyCODONE/Acetamin 5/325 MG* TAB PO PRN ×3 (12:40→21:52)
[2018-08-31] MEDS: Ondansetron INJ* 2 MG/ML VIAL IV PRN (04:59)
[2018-08-31] MEDS: oxyCODONE/Acetamin 5/325 MG* TAB PO PRN ×3 (05:41→19:20)
[2018-08-31] MEDS: Heparin VIAL(*) 5000 UNITS/ML VIAL (FIVE THOUSAND) SUBCUT SCH ×3 (05:42→21:57)
[2018-08-31 06:05] LABS: ABS Lymphocytes 0.5 10^3/ul (1.0-4.8); ABS Monocytes 0.4 10^3/ul (0-0.8); Eosinophil % 0.4 %; Hematocrit 27 % (35-47); Hemoglobin 9.3 g/dL (12.0-16.0); Lymphocyte % 6.7 %; Mean Corpuscular HGB Conc 35 g/dL (31-36); Mean Corpuscular Hemoglobin 30 pg (27-31); Mean Corpuscular Volume 88 fL (80-97); Mean Platelet Volume 7.7 fL (7.4-10.4); Platelet Count 117 10^3/uL (150-450); Red Blood Count 3.06 10^6 /uL (3.70-4.87); Red Cell Distribution Width 12 % (10-15); White Blood Count 6.9 10^3/uL (3.5-10.8)
[2018-08-31] MEDS: Pantoprazole IV* 40 MG IV SCH (09:05)
--- NOTE | 2018-08-31 10:56 | PN ---
Progress Note - Progress Note Date of Service: 08/31/18 SOAP: Subjective: Pt seen and examined. Feeling a little better today. "Difficult night" with lower abdo pain. some reflux, no nausea Pos. flatus Objective: Temp Pulse Resp BP Pulse Ox 97.5 F 64 18 115/53 97 08/31/18 07:27 08/31/18 07:27 08/31/18 08:00 08/31/18 07:27 08/31/18 08:00 Intake & Output 08/30/18 08/31/18 08/31/18 22:59 06:59 14:59 Intake Total 100 1085 Output Total 300 600 500 Balance -200 485 -500 a and o x3, nad lungs clear abdo: soft/ mild distension/ incisional tenderness no redness. normoactive BS ext wnl labs noted Assessment: POD 3 sigmoid colectomy, path P, post op anemia Plan: labs in am advance diet pain control
[2018-08-31] MEDS: D5W 1/2 NS KCl 20 Meq 1000 ML* 1,000 ML IV SCH (12:18)
[2018-08-31] MEDS ORDERED: Scopolamine PATCH Remove* 1 NOTE MISC PATCH OFF ONE (12:22)
[2018-09-01] MEDS: oxyCODONE/Acetamin 5/325 MG* TAB PO PRN ×4 (01:47→21:36)
[2018-09-01] MEDS: D5W 1/2 NS KCl 20 Meq 1000 ML* 1,000 ML IV SCH (01:48)
[2018-09-01 05:17] LABS: ABS Eosinophils 0.2 10^3/ul (0-0.6); ABS Lymphocytes 0.7 10^3/ul (1.0-4.8); ABS Monocytes 0.3 10^3/ul (0-0.8); ABS Neutrophils 4.6 10^3/ul (1.5-7.7); Eosinophil % 2.9 %; Hematocrit 27 % (35-47); Hemoglobin 9.2 g/dL (12.0-16.0); Lymphocyte % 12.2 %; Mean Corpuscular HGB Conc 35 g/dL (31-36); Mean Corpuscular Hemoglobin 31 pg (27-31); Mean Corpuscular Volume 88 fL (80-97); Mean Platelet Volume 7.7 fL (7.4-10.4); Platelet Count 139 10^3/uL (150-450); Red Blood Count 3.01 10^6 /uL (3.70-4.87); Red Cell Distribution Width 12 % (10-15); White Blood Count 5.8 10^3/uL (3.5-10.8)
[2018-09-01 05:32] LABS: Phosphorus 2.7 mg/dL (2.5-5.0)
[2018-09-01] MEDS: Heparin VIAL(*) 5000 UNITS/ML VIAL (FIVE THOUSAND) SUBCUT SCH ×3 (06:03→21:38)
[2018-09-01] MEDS: Pantoprazole IV* 40 MG IV SCH (08:20)
--- NOTE | 2018-09-01 10:07 | PN ---
Progress Note - Progress Note Date of Service: 09/01/18 SOAP: Subjective: Pt seen and examined. Felling better. Still with RLQ pain, no nausea, but " air bubble" at times. Some flatus Objective: Temp Pulse Resp BP Pulse Ox 98.3 F 73 18 151/74 96 09/01/18 07:30 09/01/18 07:30 09/01/18 09:21 09/01/18 07:30 09/01/18 08:00 Intake & Output 08/31/18 09/01/18 09/01/18 22:59 06:59 14:59 Intake Total 500 1340 360 Output Total 4774 527 5685 Balance -1000 540 -740 a and o x3, nad abdo: soft/ ND/ tender at RLQ, ecchymosis w/o redness ext wnl labs noted path P Assessment: POD 4 lap sigmoid colectomy, HD stable Plan: ad giles diet IVL d/c planning f/u path
[2018-09-02] MEDS: Heparin VIAL(*) 5000 UNITS/ML VIAL (FIVE THOUSAND) SUBCUT SCH ×3 (05:41→22:19)
[2018-09-02 08:52] LABS: ABS Eosinophils 0.2 10^3/ul (0-0.6); ABS Lymphocytes 0.8 10^3/ul (1.0-4.8); ABS Monocytes 0.3 10^3/ul (0-0.8); ABS Neutrophils 3.6 10^3/ul (1.5-7.7); Eosinophil % 4.6 %; Hematocrit 30 % (35-47); Hemoglobin 10.3 g/dL (12.0-16.0); Lymphocyte % 16.5 %; Mean Corpuscular HGB Conc 34 g/dL (31-36); Mean Corpuscular Hemoglobin 30 pg (27-31); Mean Corpuscular Volume 88 fL (80-97); Mean Platelet Volume 6.9 fL (7.4-10.4); Nucleated Red Blood Cells % 0.1; Platelet Count 182 10^3/uL (150-450); Red Blood Count 3.43 10^6 /uL (3.70-4.87); Red Cell Distribution Width 12 % (10-15)
[2018-09-02 09:09] LABS: BUN/Creatinine Ratio 7.6 (8-20); Calcium 8.6 mg/dL (8.6-10.3); EGFR African American 108.1 (>60); EGFR Non-African American 89.3 (>60); Potassium 3.8 mmol/L (3.5-5.0)
[2018-09-02] MEDS: oxyCODONE/Acetamin 5/325 MG* TAB PO PRN ×3 (09:15→19:45)
[2018-09-02] MEDS: Pantoprazole IV* 40 MG IV SCH (10:08)
--- NOTE | 2018-09-02 11:18 | PN ---
Progress Note - Progress Note Date of Service: 09/02/18 SOAP: Subjective: Pt seen and examined. c/o r sided pain that radiates to back and r shoulder. good U/O . decreased appetite some flatus, no BM since yesterday Objective: Temp Pulse Resp BP Pulse Ox 98.5 F 78 16 134/81 94 09/02/18 07:43 09/02/18 07:43 09/02/18 09:15 09/02/18 07:43 09/02/18 07:43 Intake & Output 09/01/18 09/02/18 09/02/18 22:59 06:59 14:59 Intake Total 1150 360 Output Total 2492 292 5058 Balance -150 -900 -940 Weight 140 lb a and o x3 lungs good effort abdo: soft/ ND/ incisional tenderness ext wnl labs noted Assessment: POD 5 sigmoid colectomy, HD stable Plan: pain control f/u path d/c planning
[2018-09-02] MEDS ORDERED: diPHENhydraMINE IV* 50 MG/ML 1 ml VIAL (BENADRYL) IV ONE (15:15)
[2018-09-03] MEDS: oxyCODONE/Acetamin 5/325 MG* TAB PO PRN ×2 (03:59→09:27)
[2018-09-03] MEDS: Heparin VIAL(*) 5000 UNITS/ML VIAL (FIVE THOUSAND) SUBCUT SCH (05:31)
[2018-09-03] MEDS: Pantoprazole IV* 40 MG IV SCH (08:40)
[2018-09-03] MEDS ORDERED: diPHENhydraMINE PO* 25 MG PO PRN (10:23)
--- NOTE | 2018-09-03 11:22 | PN ---
Progress Note - Progress Note Date of Service: 09/03/18 Note: S: POD #6. Doing well. Seen with Dr. Smart. Pain controlled. Bipin diet. Passing flatus. No BM. Still having some itching from truncal rash. Relieved by Benadryl , but was also sedating. Feels ready for d/c home. O: Vital Signs - 8 hr 09/03/18 09/03/18 09/03/18 03:45 03:59 06:39 Temperature 98.2 F Pulse Rate 73 Respiratory 16 18 18 Rate Blood Pressure 119/67 (mmHg) O2 Sat by Pulse 95 Oximetry 09/03/18 09/03/18 09/03/18 07:33 07:35 09:27 Temperature 98.2 F Pulse Rate 71 Respiratory 15 15 18 Rate Blood Pressure 125/72 (mmHg) O2 Sat by Pulse 96 Oximetry Intake and Output Last 24 Hours 09/01/18 09/02/18 09/03/18 09/04/18 06:59 06:59 06:59 06:59 Intake Total 3340 2966 1560 Output Total 3000 4250 3000 600 Balance 340 -1284 -1440 -600 Weight 140 lb 137 lb 1.6 oz Intake: IV Fluids 1959 616 D5W 1/2 NS 20 meq KCL 1959 616 Oral 1380 2350 1560 Output: Urine 3000 4250 3000 600 Other: Estimated Void Medium # Bowel Movements 1 0 0 Estimated Stool Amount Small Small # Voids 1 2 Gen: appears well; NAD Skin: anterior trunk, in the distribution of the skin prep, there is a confluent fine macular rash; the rash on the back appears more papular. The upper chest and extremities seem to be spared Heart: reg Lungs: clear Abd: lap sites ok; +BS; soft; mild tenderness Path: (discussed w/ patient) Colon, sigmoid, partial colectomy: -- Invasive adenocarcinoma of colon, with: Histologic grade: Well-differentiated (G1). Location: Sigmoid colon. Configuration: Exophytic. Size: 11 mm. Extent of invasion: Tumor invades into submucosa only. No muscularis propria invasion identified.. Lymphovascular (small vessel) invasion: Not seen. Venous (large vessel) invasion: Not seen. Perineural invasion: Not seen. Peritumoral lymphocytic response: Modest. Growth pattern at periphery: Infiltrating. Margins: Proximal: Widely clear by greater than 1 cm. Distal: Widely clear by greater than 1 cm. Radial (circumferential): Widely clear greater than 5 mm. Lymph nodes: Four lymph nodes with no tumor seen (0/4). 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 See comment.. pTNM histopathologic stage: pT 1 N 0 M N/A. A: s/p lap assisted sigmoid colectomy, doing well P: home today; instructions reviewed; office f/u 09/09
[2018-09-03 11:39] VITALS: BP 134/71
--- NOTE | 2018-09-03 12:49 | DS ---
CC: Dr. Margarita Pereira, Dr. Maciel Carrion; Dr. Jackson Good * DISCHARGE SUMMARY: DATE OF ADMISSION: 08/28/18 DATE OF DISCHARGE: 09/03/18 ATTENDING SURGEON: Dr. Nithin Smart.* (DICTATED BY NIKKI CAMP) HOSPITAL COURSE: Please refer to admission history and physical and operative note for details. The patient was taken to the operating room on 08/28/18, at which time she underwent laparoscopic-assisted sigmoid colectomy with Dr. Smart. A primary anastomosis was performed. She did have some rectal bleeding , the first 2 days postoperatively with a decrease in her hemoglobin from preop of 12.8 to a low of 9.2. She was back up to 10.3 as of 09/02/18. She remained hemodynamically stable. She was able to be advanced gradually in diet and as of the morning of the discharge was passing flatus, though had not yet had a bowel movement. She was tolerating diet. She also developed pruritic truncal rash, which appeared anteriorly to be primarily in the distribution of the skin prep. She also has a papular rash on her back, this has responded well to Benadryl and she will continue antihistamine of choice upon discharge p.r.n. Prescription for Percocet was e-sent to her pharmacy. [facility] I-STOP was checked. She has a return appointment for our office on 09/09/18. She is discharged to home in good condition. NIKKI CAMP [id number]/[facility] #: [id number] [facility]yler
== END 2018-09-03 12:00 | disposition home or self-care (01) | DRG 330 ==
LOC: AA 08:17 → SSU 19:48
PROVIDERS: ADMIT Surgery; ATTEND Surgery
PROC: 0DBN4ZZ Excision of Sigmoid Colon, Percutaneous Endoscopic Approach (ICD-10-PCS; principal; 2018-08-28 09:45)
DX: C18.7 Malignant neoplasm of sigmoid colon (principal); D62 Acute posthemorrhagic anemia; K62.5 Hemorrhage of anus and rectum; R21 Rash and other nonspecific skin eruption; L29.9 Pruritus, unspecified; Z88.0 Allergy status to penicillin; Z88.8 Allergy status to other drugs, medicaments and biological substances; Z91.040 Latex allergy status; Z82.49 Family history of ischemic heart disease and other diseases of the circulatory system; Z80.8 Family history of malignant neoplasm of other organs or systems; Z72.89 Other problems related to lifestyle; Z86.718 Personal history of other venous thrombosis and embolism; Z80.0 Family history of malignant neoplasm of digestive organs
CPT/HCPCS: 36415; 80048; 83735; 83880; 84100; 84484; 85014; 85018; 85025; 85027; 85610; 86850; 86900; 86901; 88309; A9270-GY; C1776; J1100; J1170; J1200; J1240; J1335; J1644; J1885; J2250; J2405; J2704; J2765; J3010; J3475

== ENCOUNTER 2018-09-04 13:21 | Emergency (ER) | payer MEDICARE, OTHER ==
[2018-09-04] MEDS ORDERED: NS 0.9% 1000 ML** 1,000 ML IV ONE ×2 (13:55→16:01)
[2018-09-04] MEDS ORDERED: Ondansetron INJ* 2 MG/ML VIAL IV ONE (13:56)
[2018-09-04] MEDS ORDERED: Pantoprazole IV* 40 MG IV ONE (13:57)
--- NOTE | 2018-09-04 14:07 | ED ---
GI/ HPI - HPI Summary HPI Summary: Patient is a 68 y/o F who had laproscopic resection 08/28/18 presents to ED via EMS with complaints of nausea, three episodes of vomiting since this morning today. She notes the second episode had "very bright red blood, a lot of bright red blood. EMS was called, patient reports that she had a third episode of emesis while in ED. Patient reports there was a slight amount of blood present in vomit. Hx of colon CA, patient was released from surgery yesterday. Patient reports that she was feeling "fine" after the surgery. She states that she has been eating and drinking fine but notes that she has not had a bowel movement since discharge. Patient took Percocet at 1100 today. On triage, pain is rated 3 /10, nothing is noted to aggravate/alleviate Sx. Home medications and allergies are reviewed. - History of Current Complaint Chief Complaint: EDNauseaVomitDiarrh Time Seen by Provider: 09/04/18 13:30 Stated Complaint: VOMITING BLOOD PER EMS Hx Obtained From: Patient Onset/Duration: Started Hours Ago - since this morning, Still Present Timing: Constant, Lasting Hours - since this morning Severity: Mild Current Severity: Mild Pain Intensity: 3 Associated Signs and Symptoms: Positive: Nausea, Vomiting, Constipation - no BM since discharge, Abdominal Pain. Negative: Change in Appetite Aggravating Factor(s): Nothing Alleviating Factor(s): Nothing - Additional Pertinent History Primary Care Physician: DYLON - Allergy/Home Medications Allergies/Adverse Reactions: Allergies Allergy/AdvReac Type Severity Reaction Status Date / Time latex Allergy Intermediate Rash And Verified 09/04/18 13:25 Itching amoxicillin Allergy Hives Verified 09/04/18 13:25 propoxyphene [From Darvon] Allergy Vomiting Verified 09/04/18 13:25 PMH/Surg Hx/FS Hx/Imm Hx Endocrine/Hematology History: Denies: Hx Diabetes, Hx Thyroid Disease Cardiovascular History: Denies: Hx Hypertension, Hx Pacemaker/ICD, Other Cardiovascular Problems/ Disorders Respiratory History: Denies: Hx Asthma, Hx Chronic Obstructive Pulmonary Disease (COPD), Other Respiratory Problems/Disorders GI History: Denies: Hx Ulcer, Other GI Disorders History: Denies: Hx Dialysis, Hx Renal Disease, Other Problems/Disorders Musculoskeletal History: Reports: Hx Arthritis - LOWER BACK, FINGERS Denies: Other Musculoskeletal History Sensory History: Reports: Hx Contacts or Glasses - GLASSES Denies: Hx Hearing Aid Opthamlomology History: Reports: Hx Contacts or Glasses - GLASSES Neurological History: Denies: Other Neuro Impairments/Disorders Psychiatric History: Denies: Hx Panic Disorder - Cancer History Cancer Type, Location and Year: newly dx colon cancer - Surgical History Surgery Procedure, Year, and Place: tonsillectomy-EARLY 1981-[facility];. larposcopic colon resection, 08/28/18 Hx Anesthesia Reactions: Yes - TONSILLECTOMY- VERY SLOW TO WAKE, VOMITING Infectious Disease History: No Infectious Disease History: Reports: Hx Shingles - right upper body 2003 Denies: Hx Hepatitis, Hx Human Immunodeficiency Virus (HIV), Traveled Outside the [place] in Last 30 Days - Family History Known Family History: Positive: Other - FMHx of colon CA - Social History Alcohol Use: Daily Alcohol Amount: 1 glass of gin Substance Use Type: Reports: None Smoking Status (MU): Never Smoked Tobacco Have You Smoked in the Last Year: No Review of Systems Negative: Fever - on vitals, temp is 98.1 F Gastrointestinal: Other - NEGATIVE - CHANGE IN APPETITE; POSITIVE - CONSTIPATION Positive: Vomiting, Nausea All Other Systems Reviewed And Are Negative: Yes Physical Exam - Summary Physical Exam Summary: VITAL SIGNS: Reviewed. GENERAL: Patient is a well-developed and nourished female who is lying comfortable in the stretcher. Patient is not in any acute respiratory distress. HEAD AND FACE: No signs of trauma. No ecchymosis, hematomas or skull depressions. No sinus tenderness. EYES: PERRLA, EOMI x 2, No injected conjunctiva, no nystagmus. EARS: Hearing grossly intact. Ear canals and tympanic membranes are within normal limits. MOUTH: Oropharynx within normal limits. Dry oral mucosa. NECK: Supple, trachea is midline, no adenopathy, no JVD, no carotid bruit, no c- spine tenderness, neck with full ROM. CHEST: Symmetric, no tenderness at palpation LUNGS: Clear to auscultation bilaterally. No wheezing or crackles. CVS: Regular rate and rhythm, S1 and S2 present, no murmurs or gallops appreciated. ABDOMEN: Soft, mild, diffuse tenderness. No signs of distention. No rebound no guarding, and no masses palpated. Bowel sounds are normal. EXTREMITIES: FROM in all major joints, no edema, no cyanosis or clubbing. NEURO: Alert and oriented x 3. No acute neurological deficits. Speech is normal and follows commands. SKIN: Dry and warm. Abdominal surgical incision is CDI. Triage Information Reviewed: Yes Vital Signs On Initial Exam: Initial Vitals Temp Pulse Resp BP Pulse Ox 98.1 F 91 20 156/100 98 09/04/18 13:22 09/04/18 13:22 09/04/18 13:22 09/04/18 13:22 09/04/18 13:22 Vital Signs Reviewed: Yes Diagnostics - Vital Signs Vital Signs Temp Pulse Resp BP Pulse Ox 09/04/18 13:22 98.1 F 91 20 156/100 98 - Laboratory Result Diagrams: 09/04/18 14:08 09/04/18 08:41 Lab Statement: Any lab studies that have been ordered have been reviewed, and results considered in the medical decision making process. - Radiology ABDOMEN X-RAY Radiology Interpretation Completed By: Radiologist Summary of Radiographic Findings: ABDOMEN X-RAY IMPRESSION: NONOBSTRUCTIVE BOWEL GAS PATTERN. LARGE AMOUNT OF STOOL THROUGHOUT THE COLON. THIS REPORT WAS REVIEWED BY DR. EUCEDA. - EKG 1342 Cardiac Rate: NL - rate of 73 BPM EKG Rhythm: Sinus Rhythm EKG Comparison: No Significant Change - compared to 08/22/18 Summary of EKG Findings: EKG showed sinus rhythm with rate of 73 BPM, no ST elevation, normal axis, no significant change compared to 08/22/18. Re-Evaluation - Re-Evaluation First Eval Re-Evaluation Time: 16:34 Comment: I discussed all the findings and test results with the patient. Patient was instructed to return to the emergency room immediately if any of the symptoms return worsens. Plan of care was discussed with the patient and understands and agrees. All questions were answered at patient satisfaction. There were no further complaints or concerns. Lung exam before discharge: CTA B/ L. Good air exchange. No wheezing or crackles heard. CVS: S1 and S2 present. No murmurs appreciated. Patient is alert and oriented x 3. Patient is hemodynamically stable. Patient will be discharged home with follow up PCP in the next 2-3 days GIGU Course/Dx - Course Assessment/Plan: Patient is a 68 y/o F who had laparoscopic resection 6/5/19 presents to ED via EMS with complaints of nausea, three episodes of vomiting since this morning today. She notes the second episode had "very bright red blood, a lot of bright red blood. EMS was called, patient reports that she had a third episode of emesis while in ED. Patient reports there was a slight amount of blood present in vomit. Hx of colon CA, patient was released from surgery yesterday. Patient reports that she was feeling "fine" after the surgery. She states that she has been eating and drinking fine but notes that she has not had a bowel movement since discharge. Patient took Percocet at 1100 today. Blood work without any significant abnormality except for slight anemia with a hemoglobin 10.8 and hematocrit 32, glucose 106, AST 70 AST 67 CRP 20.3 and urinalysis negative for UTI. In the ED course the patient was given IV fluids, she was given Zofran and the symptoms have significantly improved. Abdomen x-ray impression: Non-obstructive bowel gas pattern. Large amount of stool throughout the colon. In the ED course, patient was seen and examined by Dr. Smart who recommends for the patient to give a by mouth challenge and if she is able to tolerate by mouth the patient can be discharged home with follow- up at his office. The patient is able to tolerate oral intake without any nausea vomiting therefore the patient will be discharged home with follow-up with PCP. I will be given a prescription for Zofran. I discussed all the findings and test results with the patient. Patient was instructed to return to the emergency room immediately if any of the symptoms return worsens. Plan of care was discussed with the patient and understands and agrees. All questions were answered at patient satisfaction. There were no further complaints or concerns. Lung exam before discharge: CTA B/L. Good air exchange. No wheezing or crackles heard. CVS: S1 and S2 present. No murmurs appreciated. Patient is alert and oriented x 3. Patient is hemodynamically stable. Patient will be discharged home with follow up PCP in the next 2-3 days - Diagnoses Provider Diagnoses: Nausea and vomiting, Constipation - Physician Notifications Discussed Care Of Patient With: Nithin Smart Time Discussed With Above Provider: 13:54 Instructed by Provider To: Other - Patient's case was discussed with Dr. Smart, he recommends fluids, abdomen x-ray, and bloodwork as well as tolerating PO challenge. Discharge - Sign-Out/Discharge Documenting (check all that apply): Patient Departure - discharge Patient Received Moderate/Deep Sedation with Procedure: No - Discharge Plan Condition: Stable Disposition: HOME Prescriptions: Omeprazole CAP (NF) [Prilosec CAP* 20 MG] 20 mg PO DAILY #20 cap. Ondansetron TAB* [Zofran 4 MG Tab*] 4 mg PO Q6H PRN #10 tab PRN Reason: Constipation Polyethylene Glycol 3350* [Miralax*] 17 gm PO DAILY #12 packet Patient Education Materials: Constipation (ED), Acute Nausea and Vomiting (ED) Referrals: Nithin Smart MD [Medical Doctor] - 3 Days Margarita Pereira MD [Primary Care Provider] - 3 Days Additional Instructions: PLEASE RETURN TO ED FOR ANY CHANGING OR WORSENING SYMPTOMS. FOLLOW UP WITH YOUR PRIMARY CARE PHYSICIAN AND SURGEON WITHIN THREE DAYS. - Billing Disposition and Condition Condition: STABLE Disposition: Home - Attestation Statements Document Initiated by Asheribe: Yes Documenting Scribe: BRIE LITTLE Provider For Whom Manny is Documenting (Include Credential): MALKA EUCEDA MD Scribe Attestation: BRIE Young, scribed for MALKA EUCEDA MD on 09/04/18 at 2145. Scribe Documentation Reviewed: Yes Provider Attestation: The documentation as recorded by the BRIE muñoz accurately reflects the service I personally performed and the decisions made by , MALKA EUCEDA MD Status of Scribe Document: Viewed
[2018-09-04 14:28] LABS: ABS Eosinophils 0.1 10^3/ul (0-0.6); ABS Lymphocytes 0.5 10^3/ul (1.0-4.8); ABS Monocytes 0.5 10^3/ul (0-0.8); ABS Neutrophils 6.1 10^3/ul (1.5-7.7); Activated Partial Thrombo Time 34.1 seconds (26.0-38.0); Hematocrit 32 % (35-47); Hemoglobin 10.8 g/dL (12.0-16.0); INR 1.03 (0.82-1.09); Lymphocyte % 6.8 %; Mean Corpuscular HGB Conc 34 g/dL (31-36); Mean Corpuscular Hemoglobin 29 pg (27-31); Mean Corpuscular Volume 87 fL (80-97); Platelet Count 270 10^3/uL (150-450); Red Cell Distribution Width 13 % (10-15); White Blood Count 7.1 10^3/uL (3.5-10.8)
[2018-09-04 14:33] LABS: Albumin 3.4 g/dL (3.2-5.2); Albumin/Globulin Ratio 1.3 (1-3); C Reactive Protein 20.73 mg/L (<8.01); Calcium 8.8 mg/dL (8.6-10.3); EGFR African American 106.2 (>60); EGFR Non-African American 87.8 (>60); Globulin 2.6 g/dL (2-4); Total Bilirubin 0.5 mg/dL (0.2-1.0)
[2018-09-04 14:33] LABS: Urine Appearance Clear; Urine Bilirubin Negative (Negative); Urine Blood Negative (Negative); Urine Color Straw; Urine Glucose Negative (Negative); Urine Ketones 1+ (Negative); Urine Nitrite Negative (Negative); Urine Protein Negative (Negative); Urine Specific Gravity 1.004 (1.010-1.030); Urine Urobilinogen Negative (Negative)
[2018-09-04 15:47] LABS: BUN/Creatinine Ratio 14.9 (8-20)
[2018-09-04 17:11] VITALS: BP 136/96
== END 2018-09-04 17:10 | disposition home or self-care (01) ==
LOC: ED 13:21
DX: R11.2 Nausea with vomiting, unspecified (principal); K59.00 Constipation, unspecified; Z88.5 Allergy status to narcotic agent; Z88.1 Allergy status to other antibiotic agents; Z91.040 Latex allergy status
CPT/HCPCS: 36415; 74019; 80053; 81003; 82270; 83605; 83690; 83735; 85025; 85610; 85730; 86140; 93005; 99283; J2405